=== PATIENT | male | born 1960 | race African-American/Black ===

== ENCOUNTER 2019-04-03 07:43 | Emergency (ER) | payer BC ==
[2019-04-03] MEDS: SOD CHLORIDE 0.9% 100 ML (09:21)
[2019-04-03] MEDS: IOHEXOL 300MG/ML 150 ML BTL (09:22)
== END 2019-04-03 11:06 | disposition home or self-care (01) ==
LOC: E/R 07:43
DX: R25.8 Other abnormal involuntary movements (principal); I12.0 Hypertensive chronic kidney disease with stage 5 chronic kidney disease or end stage renal disease; N18.6 End stage renal disease; R40.2142 Coma scale, eyes open, spontaneous, at arrival to emergency department; R40.2362 Coma scale, best motor response, obeys commands, at arrival to emergency department; R40.2252 Coma scale, best verbal response, oriented, at arrival to emergency department; Z85.46 Personal history of malignant neoplasm of prostate; Z95.0 Presence of cardiac pacemaker; Z96.652 Presence of left artificial knee joint
CPT/HCPCS: 36415; 70470; 80053; 81001; 83735; 84100; 84436; 84479; 85025; 85610; 85730; 99285-25